=== PATIENT | female | born 1965 | race Caucasian/White ===

== ENCOUNTER 2019-10-15 02:49 | Emergency (ER) | payer BC ==
[2019-10-15] MEDS ORDERED: IBUPROFEN 600 MG TABLET PO ONE (02:58)
[2019-10-15] MEDS ORDERED: IPRATROPIUM/ALBUTEROL (0.5MG/3MG) NEB INH ONE (02:58)
--- NOTE | 2019-10-15 03:11 | Emergency Department Record ---
History of Present Illness - General Chief Complaint: Cough Stated Complaint: COUGH,HEADACHE,CONSTANCE Time Seen by Provider: 10/15/19 02:51 Source: Patient Mode of Arrival: Ambulatory Limitations: No limitations - History of Present Illness Initial Comments: 53 yo female presents with a few days of cough, congestion, aches, sore throat. 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 She has body aches and headaches. The cough has been "chunky" but clear. She is not a smoker with asthma. She has had pneumonia. She used her inhaler around 6pm last. She had 6 teeth pulled last Tuesday. PCP is Estrella Shaw MD Complaint: Cough, Nasal congestion, Sore throat, Other (Headache) -: Days(s) Severity: Moderate Quality: Aching Consistency: Constant Worsens With: Other (Cough) Associated Symptoms: Chills, Cough, Headache, Hoarseness, Myalgias, Rhinorrhea, Sore throat Treatments Prior to Arrival: Acetaminophen, Ibuprofen - Related Data Home Medications Medication Instructions Recorded Confirmed Last Taken Albuterol Sulfate [Proair Hfa] 1 - 2 puff IH .EVERY 4-6 HOURS PRN 10/15/19 10/15/19 10/14/19 Fluoxetine HCl [Prozac] 40 mg PO DAILY 10/15/19 10/15/19 10/14/19 Pantoprazole Sodium [Protonix] 40 mg PO DAILY 10/15/19 10/15/19 10/14/19 Topiramate [Topamax] 25 mg PO DAILY 10/15/19 10/15/19 10/14/19 Previous Rx's Medication Instructions Recorded Albuterol Sulfate [Albuterol 18 gm IH Q4H #1 hfa.aer.ad 10/15/19 Sulfate Hfa] Azithromycin [Zithromax] 250 mg PO DAILY #4 tab 10/15/19 Prednisone [Prednisone 20Mg] 20 mg PO BID #10 tab 10/15/19 Allergies Allergy/AdvReac Type Severity Reaction Status Date / Time omeprazole [From Prilosec] Allergy SWELLING Verified 10/15/19 02:59 OF THE FACE Review of Systems Constitutional: Reports: Chills, Fever ([place]), Malaise, Weakness Course Vital Signs 10/15/19 02:56 Temperature 98.2 F Pulse Rate [ 84 Left] Respiratory 18 Rate Blood Pressure 123/85 [Left Arm] Pulse Ox 98 - Reevaluation(s) Reevaluation #1: Vitals were reviewed No significant abnormalities 10/15/19 03:24 The influenza swabs are negative The CXR was reviewed. My preliminary read is negative for acute process She is coughing up thick yellow sputum after the breathing treatment After the treatment she fell improved with increase air movement Given the productive sputum and underlying asthma she will be treated with steroids and Zithromax 10/15/19 03:27 Disposition Disposition: Discharge Clinical Impression: Bronchitis Disposition: Home, Self-Care Condition: (1) Good Instructions: Acute Bronchitis (ED) Additional Instructions: Review this ER visit and the tests performed with your family doctor Call your doctor for the next available follow up appointment Return to the ER for a recheck immediately if worse, any new concerns or questions Take the prescriptions provided as directed Prescriptions: Albuterol Sulfate [Albuterol Sulfate Hfa] 18 gm IH Q4H #1 hfa.aer.ad Prednisone [Prednisone 20Mg] 20 mg PO BID #10 tab Azithromycin [Zithromax] 250 mg PO DAILY #4 tab Forms: Patient Portal Access Time of Disposition: 03:27 Quality - Quality Measures Quality Measures: N/A - Blood Pressure Screening Does Patient Have Any of the Following: No Blood Pressure Classification: Pre-Hypertensive BP Reading Systolic Measurement: 123 Diastolic Measurement: 85 Screening for High Blood Pressure: < Pre-Hypertensive BP, F/U Documented > [G8950] Pre-Hypertensive Follow-up Interventions: Referral to alternative/primary care provider.
[2019-10-15 03:21] LABS: INFLUENZA A NEGATIVE (NEGATIVE); INFLUENZA B NEGATIVE (NEGATIVE)
[2019-10-15] MEDS ORDERED: PREDNISONE 20 MG TAB PO ONE (03:25)
[2019-10-15] MEDS ORDERED: AZITHROMYCIN 500 MG TABLET PO ONE (03:25)
--- NOTE | 2019-10-15 07:13 | RADIOLOGY REPORT ---
EXAMINATION: Two View Chest Radiographs EXAM DATE: 10/15/2019 6:40 AM TECHNIQUE: Frontal and lateral views INDICATION: cough, sputum COMPARISON: None ENCOUNTER: Not applicable FINDINGS: The cardiac and mediastinal silhouette are normal. Lungs are clear. No effusion or pneumothorax. IMPRESSION: No acute cardiopulmonary findings. Dictated by: Naeem Erazo MD on 10/15/2019 7:07 AM. .
== END 2019-10-15 03:39 | disposition home or self-care (01) ==
LOC: ER 02:49
DX: J20.9 Acute bronchitis, unspecified (principal); J45.909 Unspecified asthma, uncomplicated; R06.00 Dyspnea, unspecified; R51 Headache
CPT/HCPCS: 99284 ×2; 87400; 71046; 94640; J7512